=== PATIENT | female | born 1955 | race Caucasian/White ===

== ENCOUNTER 2021-04-07 23:35 | Emergency (ER) | payer OTHER, MEDICARE ==
[2021-04-07] MEDS ORDERED: Ondansetron 4 MG/2 ML SDV IVPUSH ONE (23:45)
[2021-04-07] MEDS ORDERED: Sodium Chloride 0.9% 1,000 ML IV SCH (23:45)
[2021-04-07] MEDS ORDERED: HYDROmorphone 1 MG/ML Syringe IVPUSH ONE (23:46)
[2021-04-08 00:54] LABS: CHLORIDE,CL 104 mmol/L (98-107); SODIUM,NA 140 mmol/L (136-145)
[2021-04-08 00:57] LABS: ANION GAP 14.5 mmol/L (5-15)
[2021-04-08] MEDS ORDERED: HYDROmorphone 1 MG/ML Syringe IVPUSH ONE (01:07)
--- NOTE | 2021-04-08 01:13 | EDM.PDOC ---
ED HPI GENERAL MEDICAL PROBLEM - General Chief Complaint: Abdominal Pain Stated Complaint: Low abdominal pain Time Seen by Provider: 04/07/21 23:35 Source of Information: Reports: Patient History Limitations: Reports: No Limitations - History of Present Illness INITIAL COMMENTS - FREE TEXT/NARRATIVE: Pt. presents to ER with complaints of L sided abdominal pain, nausea, and vomi ting. Pt. states that she was lying down for bed when the discomfort started quite acutely. Pt. states that the discomfort started first, and then the nausea/vomiting. Pt. denies any fever or chills. She states that she had a BM shortly before coming to the ER and states that this did not potentiate or palliate the discomfort. Denies any diarrhea. No emili bloody stools. Pt. states that she has had a tubal ligation but denies any other recent or open abdominal surgeries. Denies any chest pain or shortness of breath. She denies ever having discomfort like this in the past. Pt. denies any dysuria, hematuria, frequency or urgency. Denies any flank pain. Onset: Today Onset Date: 04/07/21 Onset Time: 22:30 Location: Reports: Abdomen Associated Symptoms: Reports: Nausea/Vomiting Right lower abdomen Pain Score (Numeric/FACES): 10 - Related Data Allergies Allergy/AdvReac Type Severity Reaction Status Date / Time No Known Allergies Allergy Verified 04/08/21 01:58 Home Meds: Home Meds Escitalopram Oxalate [Lexapro] 10 mg PO DAILY 04/08/21 [History] ED ROS GENERAL - Review of Systems Review Of Systems: See Below Constitutional: Reports: No Symptoms HEENT: Reports: No Symptoms Respiratory: Reports: No Symptoms Cardiovascular: Reports: No Symptoms Endocrine: Reports: No Symptoms GI/Abdominal: Reports: Abdominal Pain, Decreased Appetite, Nausea, Vomiting. Denies: Constipation, Diarrhea, Distension, Hematemesis : Reports: No Symptoms Musculoskeletal: Reports: No Symptoms Skin: Reports: No Symptoms Neurological: Reports: No Symptoms Psychiatric: Reports: No Symptoms Hematologic/Lymphatic: Reports: No Symptoms Immunologic: Reports: No Symptoms ED EXAM, GENERAL - Physical Exam Exam: See Below Exam Limited By: No Limitations General Appearance: Alert, WD/WN, No Apparent Distress Throat/Mouth: Normal Inspection, Normal Lips, Normal Teeth, Normal Oropharynx, Normal Voice, No Airway Compromise Head: Atraumatic, Normocephalic Neck: Normal Inspection, Supple, Non-Tender, Full Range of Motion Respiratory/Chest: No Respiratory Distress, Lungs Clear, Normal Breath Sounds, No Accessory Muscle Use, Chest Non-Tender Cardiovascular: Normal Peripheral Pulses, Regular Rate, Rhythm, No Edema, No JVD, No Murmur Peripheral Pulses: 4+: Radial (L) GI/Abdominal: Soft, Tender (R mid abdominal discomfort, worse with palpation. + rebound and guarding) (Female) Exam: Deferred Rectal (Female) Exam: Deferred Back Exam: Normal Inspection, Full Range of Motion Extremities: Normal Inspection, Normal Range of Motion, Non-Tender, No Pedal Edema, Normal Capillary Refill Neurological: Alert, Oriented, CN II-XII Intact, Normal Cognition, Normal Gait, Normal Reflexes, No Motor/Sensory Deficits Psychiatric: Normal Affect, Normal Mood Skin Exam: Warm, Dry, Intact, Normal Color, No Rash Lymphatic: No Adenopathy Course - Vital Signs Last Recorded V/S: Last Vital Signs Temp 36.6 C 04/07/21 23:35 Pulse 71 04/07/21 23:35 Resp 16 04/07/21 23:35 BP 142/81 H 04/07/21 23:35 Pulse Ox 96 04/07/21 23:35 - Orders/Labs/Meds Orders: Active Orders 24 hr Category Date Time Status Abdomen Pelvis w Cont [CT] Stat Exams 04/08/21 00:51 Taken UA RFX BEVERLEY AND CULT IF INDIC [URIN] Stat Lab 04/07/21 23:45 Ordered Piperacillin/Tazobactam [Zosyn] 3.375 gm Med 04/08/21 02:37 Ordered Sodium Chloride 0.9% [Normal Saline] 100 ml IV STAT Sodium Chloride 0.9% [Normal Saline] 1,000 ml Med 04/07/21 23:45 Active IV ASDIRECTED Medication Orders Sodium Chloride (Normal Saline) 1,000 mls @ 1,000 mls/hr IV ASDIRECTED ANA Last Admin: 04/08/21 00:25 Dose: 1,000 mls/hr Documented by: KELLY Piperacillin Sod/Tazobactam (Sod 3.375 gm/ Sodium Chloride) 100 mls @ 200 mls/hr IV STAT ONE Stop: 04/08/21 03:06 Labs: Laboratory Tests 04/08/21 04/08/2104/08/21 Range/Units 00:20 00:20 00:20 WBC 14.5 H (4.0-10.0) x10^3/uL RBC 4.19 (4.00-5.50) x10^6/uL Hgb 13.0 (12.0-16.0) g/dL Hct 39.3 (33.0-47.0) % MCV 93.8 H (78.0-93.0) fL MCH 31.0 (26.0-32.0) pg MCHC 33.1 (32.0-36.0) g/dL RDW Coeff of Jeremie 12.6 (10.0-15.0) % Plt Count 221 (130-400) x10^3/uL Neut % (Auto) 81.5 H (50.0-80.0) % Lymph % (Auto) 12.0 L (25.0-50.0) % Ashley % (Auto) 4.8 (2.0-11.0) % Eos % (Auto) 1.5 (0.0-4.0) % Baso % (Auto) 0.2 (0.2-1.2) % PT 10.4 (9.9-12.5) SEC INR 0.9 L (2.0-3.5) APTT (25.6-32.8) SEC Sodium 140 (136-145) mmol/L Potassium 3.5 (3.5-5.1) mmol/L Chloride 104 (98-107) mmol/L Carbon Dioxide 25 (21-32) mmol/L Anion Gap 14.5 (5-15) mmol/L BUN 22 H (7-18) mg/dL Creatinine 1.0 (0.55-1.02) mg/dL Est Cr Clr Drug Dosing TNP Estimated GFR (MDRD) 55 Glucose 110 H (70-99) mg/dL Calcium 9.1 (8.5-10.1) mg/dL Corrected Calcium 9.3 (8.5-10.1) mg/dL Total Bilirubin 0.3 (0.2-1.0) mg/dL AST 14 L (15-37) U/L ALT 17 (14-59) U/L Alkaline Phosphatase 72 (46-116) U/L C-Reactive Protein < 0.2 (<=0.9) mg/dL Total Protein 7.4 (6.4-8.2) g/dL Albumin 3.8 (3.4-5.0) g/dL Globulin 3.6 Albumin/Globulin Ratio 1.06 SARS CoV-2 RNA Rapid DIMA (NEGATIVE) 04/08/21 04/08/21 Range/Units 00:20 02:13 WBC (4.0-10.0) x10^3/uL RBC (4.00-5.50) x10^6/uL Hgb (12.0-16.0) g/dL Hct (33.0-47.0) % MCV (78.0-93.0) fL MCH (26.0-32.0) pg MCHC (32.0-36.0) g/dL RDW Coeff of Jeremie (10.0-15.0) % Plt Count (130-400) x10^3/uL Neut % (Auto) (50.0-80.0) % Lymph % (Auto) (25.0-50.0) % Ashley % (Auto) (2.0-11.0) % Eos % (Auto) (0.0-4.0) % Baso % (Auto) (0.2-1.2) % PT (9.9-12.5) SEC INR (2.0-3.5) APTT 22.0 L (25.6-32.8) SEC Sodium (136-145) mmol/L Potassium (3.5-5.1) mmol/L Chloride (98-107) mmol/L Carbon Dioxide (21-32) mmol/L Anion Gap (5-15) mmol/L BUN (7-18) mg/dL Creatinine (0.55-1.02) mg/dL Est Cr Clr Drug Dosing Estimated GFR (MDRD) Glucose (70-99) mg/dL Calcium (8.5-10.1) mg/dL Corrected Calcium (8.5-10.1) mg/dL Total Bilirubin (0.2-1.0) mg/dL AST (15-37) U/L ALT (14-59) U/L Alkaline Phosphatase (46-116) U/L C-Reactive Protein (<=0.9) mg/dL Total Protein (6.4-8.2) g/dL Albumin (3.4-5.0) g/dL Globulin Albumin/Globulin Ratio SARS CoV-2 RNA Rapid DIMA Negative (NEGATIVE) Meds: Medications Generic Name Dose Route Start Last Admin Trade Name Freq PRN Reason Stop Dose Admin Sodium Chloride 1,000 mls @ 1,000 mls/hr 04/07/21 23:45 04/08/21 00:25 Normal Saline IV 1,000 mls/hr ASDIRECTED ANA Administration Piperacillin Sod/Tazobactam 100 mls @ 200 mls/hr 04/08/21 02:37 Sod 3.375 gm/ Sodium Chloride IV 04/08/21 03:06 STAT ONE Discontinued Medications Generic Name Dose Route Start Last Admin Trade Name Gianq PRN Reason Stop Dose Admin Hydromorphone HCl 1 mg 04/07/21 23:46 04/08/21 00:40 Hydromorphone 1 Mg/Ml Syringe IVPUSH 04/07/21 23:47 1 mg ONETIME ONE Administration Hydromorphone HCl 1 mg 04/08/21 01:07 04/08/21 01:30 Hydromorphone 1 Mg/Ml Syringe IVPUSH 04/08/21 01:08 1 mg ONETIME ONE Administration Iopamidol 100 ml 04/08/21 02:04 04/08/21 02:05 Iopamidol 612 Mg/Ml 100 Ml Bottle IVPUSH 04/08/21 02:05 100 ml ONETIME ONE Administration Ondansetron HCl 4 mg 04/07/21 23:45 04/08/21 00:36 Ondansetron 4 Mg/2 Ml Sdv IVPUSH 04/07/21 23:46 4 mg ONETIME ONE Administration - Radiology Interpretation Free Text/Narrative:: CT abdomen and pelvis with IV contrast was obtained, positive for acute appendicitis without evidence of perforation or abscess Departure - Departure Time of Disposition: 02:48 Disposition: DC/[facility] to [facility] Clinical Impression: Appendicitis - Discharge Information Forms: ED Department Discharge, Interfacility Transfer [facility] Sepsis Event Note (ED) - Focused Exam Vital Signs: Vital Signs Temp Pulse Resp BP Pulse Ox 04/07/21 23:35 36.6 C 71 16 142/81 H 96 - Problem List Review Problem List Initiated/Reviewed/Updated: Yes - My Orders Last 24 Hours: My Active Orders 04/07/21 23:45 UA RFX BEVERLEY AND CULT IF INDIC [URIN] Stat Sodium Chloride 0.9% [Normal Saline] 1,000 ml IV ASDIRECTED 04/08/21 00:51 Abdomen Pelvis w Cont [CT] Stat 04/08/21 02:37 Piperacillin/Tazobactam [Zosyn] 3.375 gm Sodium Chloride 0.9% [Normal Saline] 100 ml IV STAT - Assessment/Plan Last 24 Hours: My Active Orders 04/07/21 23:45 UA RFX BEVERLEY AND CULT IF INDIC [URIN] Stat Sodium Chloride 0.9% [Normal Saline] 1,000 ml IV ASDIRECTED 04/08/21 00:51 Abdomen Pelvis w Cont [CT] Stat 04/08/21 02:37 Piperacillin/Tazobactam [Zosyn] 3.375 gm Sodium Chloride 0.9% [Normal Saline] 100 ml IV STAT Plan: Pt. was accepted to [facility] by Dr. Mercado, surgeon. Pt. was started on IV zosyn 3.375gm IV in ER. Pain was well controlled with IV dilaudid. Will continue IV fentanyl during transport for continued pain. Copy of CT was put on CD and sent with patient. All questions were answered.
[2021-04-08] MEDS ORDERED: Iopamidol 612 MG/ML 100 ML Bottle IVPUSH ONE (02:04)
[2021-04-08] MEDS ORDERED: Piperacillin/Tazobactam 3.375 GM in Sodium Chloride 0.9% 100 ML IV ONE (02:37)
[2021-04-08] MEDS ORDERED: Sodium Chloride 0.9% 1,000 ML IV SCH (02:50)
--- NOTE | 2021-04-08 10:28 | CT ---
[id number] CT/CT Abdomen Pelvis W IV EXAM: ABDOMEN AND PELVIS CT WITH CONTRAST INDICATION: ABDOMINAL PAIN, ELEVATED WHITE COUNT COMPARISON: None. DISCUSSION: The appendix is enlarged, fluid-filled, thick-walled with appendicoliths and surrounding inflammatory changes consistent with acute appendicitis. There is a small amount of volume of perihepatic and pelvic ascites. No drainable abscess or free air is identified. Small calculi are suggested in the gallbladder which is mildly distended. No definite inflammatory changes by CT. Ultrasound and/or HIDA scan could provide further evaluation. Mild intrahepatic and extrahepatic biliary duct dilation and pancreatic duct dilation with the common duct measuring about 10 mm and the pancreatic duct about 3 mm. Consider MRCP or ERCP to further evaluate for an obstructing stone or mass. The liver contains scattered cysts measuring up to 13 mm in diameter. Small to moderate sliding type hiatus hernia. There is an area of apparent focal narrowing of the colon, favor peristalsis. Colonoscopy may be useful to help further exclude a mass or other underlying pathology. The spleen, adrenal glands, kidneys, and small bowel are normal in appearance. The right lower quadrant lymph nodes are mildly prominent in number. This is a nonspecific finding, likely reactive in the context of appendicitis. Scattered degenerative changes in the spine. Bilateral hip osteoarthritis. IMPRESSION: 1. Acute appendicitis. There is a small amount of free fluid around the liver and in the pelvis, but no drainable abscess or free fluid. 2. The gallbladder is mildly distended and contains stones. There is mild intra and extra hepatic biliary duct dilation as well. Consider MRCP or ERCP for further evaluation. 3. Focal apparent narrowing of the hepatic flexure of the colon. Peristalsis is favored over a mass or other pathology. Consider colonoscopy for further evaluation. Karthikeyan Maurer MD 04/08/21 1027 Thank you for allowing us to participate in the care of your patient.
== END 2021-04-08 03:27 ==
LOC: VM.ED 23:35
DX: K37 Unspecified appendicitis (principal); Z79.899 Other long term (current) drug therapy; Z20.822 Contact with and (suspected) exposure to COVID-19
CPT/HCPCS: 74177; 80053; 81001; 85025; 85610; 85730; 86140; 94760; 96365; 96375; 96376; 99284; 99285-25; J1170; J2405; J2543; J7030; Q9967; U0002